=== PATIENT | male | born 1950 | race Caucasian/White ===

== ENCOUNTER 2022-10-27 19:58 | Emergency (ER) | payer OTHER, SELFPAY ==
[2022-10-27 19:59] VITALS: BP 141/93; PULSE 74; RESP 16; TEMP 36.2
[2022-10-27 20:03] VITALS: BP 141/93; PULSE 74; RESP 16; TEMP 36.2
[2022-10-27 20:29] VITALS: BMI 22.9
--- NOTE | 2022-10-27 20:34 | RAD_ITS ---
EXAM: XR LUMBOSACRAL SPINE, 4 OR 5 VIEWS CLINICAL INDICATION: pain TECHNIQUE: Frontal, lateral and bilateral oblique views of the lumbar spine. This report was created using [employer] report generation technology. COMPARISON: None. FINDINGS: VERTEBRAE: Diffuse osteopenia. No spondylolisthesis. Preservation of the normal lumbar lordosis. No significant facet arthropathy. No acute or healing fracture or malalignment. No unusual lytic or sclerotic lesions of bone. DISC SPACES: Moderate degenerative disc disease at L4-5. SOFT TISSUES: Soft tissues are unremarkable. GASTROINTESTINAL TRACT: Unremarkable as visualized. Included bowel gas pattern is non-obstructive. RAD/L/S Spine Min 4 Views IMPRESSION: 1. No acute or healing fracture or malalignment. 2. Moderate degenerative disc disease at L4-5. Electronically Signed: Alban Vidal MD at 21:30 EDT ,
--- NOTE | 2022-10-27 20:47 | EDS_ITS ---
HPI <THANG Rose - Last Filed: 10/27/22 22:16> History of Present Illness Chief Complaint: Back Narrative Narrative: Patient is presenting with left lower back pain that radiates down his left leg he has had intermittently since June. He states he has never had this evaluated. He does report some numbness down his left leg at times but denies any now. Yesterday, he was rolling around on the floor doing different exercises and stretches and thinks that he might of aggravated something because he was in a lot of pain in that area last night as well as today. He tried to ride his bike today but paddling caused him too much pain. He states he has not tried to take anything for pain to this point. He denies any injury to his back, saddle paresthesia, fever, bowel/bladder incontinence. PFSH <THANG Rose - Last Filed: 10/27/22 22:16> PFSH Home Medications cyclobenzaprine 10 mg tablet 10 mg PO TID PRN Muscle Spasm #12 TABLETS 10/27/22 [Rx Last Taken Unknown] hydrocodone-acetaminophen 5-325mg 5mg-325mg 1 tab PO Q4H PRN PRN Pain 5 days #10 TABLETS 10/27/22 [Rx Last Taken Unknown] methylprednisolone 4 mg tablets in a dose pack 4 mg PO UD ##1 10/27/22 [Rx Last Taken Unknown] Allergy/AdvReac Type Severity Reaction Status Date / Time lactose [lactose intolerant] AdvReac Upset Verified 10/27/22 20:03 Stomach Social History Smoking Status: Never smoker ROS <THANG Rose - Last Filed: 10/27/22 22:16> ROS ED Constitutional Constitutional ED: Denies chills or fever(s) Cardiovascular Cardiovascular: Denies chest pain or palpitations Respiratory/Chest Respiratory/Chest: Denies cough or dyspnea Gastrointestinal Gastrointestinal: Denies abdominal pain, nausea or vomiting Musculoskeletal Musculoskeletal: Reports arthralgias, back pain and myalgias; Denies neck pain Integumentary Denies abscess, Abrasions or rash Neurologic Neurologic: Denies weakness Psychiatric Psychiatric: Denies anxiety, depression, suicidal ideation or suicidal thoughts EXAM <THANG Rose - Last Filed: 10/27/22 22:16> Physical Exam Const Vital Signs: 10/27/22 19:59 10/27/22 20:03 Temperature 97.2 F L 97.2 F L Temperature Source Temporal Temporal Pulse Rate 74 74 Respiratory Rate 16 16 Blood Pressure 141/93 H 141/93 H Blood Pressure Mean 109 109 Positive well nourished, well developed and no apparent distress General Appearance ED: well developed HEENT Reports normocephalic and head/scalp atraumatic Mouth ED: Yes moist mucous membranes normal Eyes PERRL and EOMs intact bilaterally Neck full ROM and supple Chest Wall inspection of chest normal Resp normal respiratory effort and clear to auscultation bilaterally Cardio regular rate and regular rhythm GI soft to palpation, non-tender, non-distended and no masses Back/Spine normal ROM and normal to inspection Back/Spine Narrative: Patient does not have any midline tenderness to his cervical, thoracic, lumbar, or sacral spine. He does have some paraspinal tenderness to the left side of his lumbar spine. DP pulses 2+ and equal bilaterally, good capillary refill, sensation intact. Lumbar Spine / Lower Back: straight leg raise negative bilaterally Extremity normal to inspection and full ROM Neuro oriented x3, CN's II-XII intact bilaterally, moves all extremities, no focal motor deficits and no sensory deficits noted Sensorium / Orientation: awake and alert Psych mental status grossly normal and thought process normal Skin no rashes or lesions noted and no wounds <Dr. Cheko Paulson DO - Last Filed: 10/27/22 21:43> Physical Exam Const Vital Signs: 10/27/22 19:59 10/27/22 20:03 Temperature 97.2 F L 97.2 F L Temperature Source Temporal Temporal Pulse Rate 74 74 Respiratory Rate 16 16 Blood Pressure 141/93 H 141/93 H Blood Pressure Mean 109 109 [facility] <Margarita Thomas PA - Last Filed: 10/27/22 22:16> [facility] Narrative Medical decision making narrative: Presenting with left lower back pain that he has had intermittently since June. He has not been evaluated for this and has had no imaging. Patient does have radiation of pain and intermittent numbness down the left leg. Symptoms are consistent with sciatica. There is no injury to patient's back. X-ray obtained of the lumbar and sacral spine and shows moderate degenerative disc disease L4-L5. He has been given a follow-up with Dr. Do. He has been given pain control, Medrol Dosepak, and Flexeril. He has been given return instructions. He will be discharged in stable condition and is comfortable with plan. I have personally performed a face to face assessment of the patient and have reviewed the SIMBA Note. I performed a substantive portion of the visit including all aspects of the following. My villasenor findings include: History is [patient presents with intermittent pain in his back since June 2022. He denies injury or trauma. Patient states the last 2 days the pains been more bearable. He describes pain in his low left back that radiates down his left leg. He denies any weakness. He denies loss of bowel or bladder function. He try to go bicycle riding today but was having too much discomfort. Patient denies any fevers. He denies urinary symptoms.] Exam is [HEENT-PERRLA, EOMI. Cranial nerves II through XII grossly intact. TMs clear. Mucous membranes moist. No adenopathy. Cardiovascular-regular rate and rhythm without murmur or ectopy Lungs-clear to auscultation, chest wall stable without crepitus or subcu emphysema Abdomen-normoactive bowel sounds, soft, nontender, no rebound or rigidity, no peritoneal signs. Back exam-patient has no tenderness over the thoracic or lumbar spine. I cannot reproduce his pain with palpation. He has negative straight leg raises. Deep tendon reflexes are plus 2 out of 4 bilaterally at the patella Achilles. Patient has normal L5 extension bilaterally. Normal sensation to light touch. Extremities-intact ?4, normal range of motion, normal pulses, atraumatic] Medical Decison Making [patient had x-rays of the lumbar spine that showed degenerative changes. No fractures or lytic lesions. Patient will be discharged to home with a prescription for Flexeril as well as [place]o and a Medrol Dosepak. He will be referred to back surgeon for follow-up. He understands that should he continue to have worsening pain or weakness in the extremities or change in bowel or bladder function he is to return to the emergency department. Understands he may need further imaging to evaluate such as possibly MRI if symptoms do not improve. I suspect patient likely has sciatica.] Other additions or changes: [None] Radiography Diagnostic Testing: Clinical Impression(s) from Imaging Studies Lumbar Spine X-Ray 10/27/22 20:34 IMPRESSION: 1. No acute or healing fracture or malalignment. 2. Moderate degenerative disc disease at L4-5. Electronically Signed: Alban Vidal MD at 21:30 EDT , <Dr. Cheko Paulson, DO - Last Filed: 10/27/22 21:43> [facility] MDM Narrative Medical decision making narrative: I have personally performed a face to face assessment of the patient and have reviewed the SIMBA Note. I performed a substantive portion of the visit including all aspects of the following. My villasenor findings include: History is [patient presents with intermittent pain in his back since June 2022. He denies injury or trauma. Patient states the last 2 days the pains been more bearable. He describes pain in his low left back that radiates down his left leg. He denies any weakness. He denies loss of bowel or bladder function. He try to go bicycle riding today but was having too much discomfort. Patient denies any fevers. He denies urinary symptoms.] Exam is [HEENT-PERRLA, EOMI. Cranial nerves II through XII grossly intact. TMs clear. Mucous membranes moist. No adenopathy. Cardiovascular-regular rate and rhythm without murmur or ectopy Lungs-clear to auscultation, chest wall stable without crepitus or subcu emphysema Abdomen-normoactive bowel sounds, soft, nontender, no rebound or rigidity, no peritoneal signs. Back exam-patient has no tenderness over the thoracic or lumbar spine. I cannot reproduce his pain with palpation. He has negative straight leg raises. Deep tendon reflexes are plus 2 out of 4 bilaterally at the patella Achilles. Patient has normal L5 extension bilaterally. Normal sensation to light touch. Extremities-intact ?4, normal range of motion, normal pulses, atraumatic] Medical Decison Making [patient had x-rays of the lumbar spine that showed degenerative changes. No fractures or lytic lesions. Patient will be discharged to home with a prescription for Flexeril as well as Campo and a Medrol Dosepak. He will be referred to back surgeon for follow-up. He understands that should he continue to have worsening pain or weakness in the extremities or change in bowel or bladder function he is to return to the emergency department. Understands he may need further imaging to evaluate such as possibly MRI if symptoms do not improve. I suspect patient likely has sciatica.] Other additions or changes: [None] Radiography Diagnostic Testing: Clinical Impression(s) from Imaging Studies Lumbar Spine X-Ray 10/27/22 20:34 IMPRESSION: 1. No acute or healing fracture or malalignment. 2. Moderate degenerative disc disease at L4-5. Electronically Signed: Alban Vidal MD at 21:30 EDT , Discharge Plan Triage Chief Complaint: Back ED Midlevel Provider: Margarita Thomas ED Provider: Cheko Paulson Dx/Rx/DC Orders Clinical Impression: Left sided sciatica Instructions: ED Sciatica Prescriptions: New cyclobenzaprine 10 mg tablet 10 mg PO TID PRN (Reason: Muscle Spasm) Qty: 12 0RF hydrocodone-acetaminophen 5-325 mg tablet 1 tab PO Q4H PRN PRN (Reason: Pain) 5 Days Qty: 10 0RF methylprednisolone [methylprednisolone] 4 mg tablets,dose pack 4 mg PO UD Qty: 1 0RF Primary Care Provider: Care Physician,No Primary Referrals: Tarun Do DO [Med Staff - Active Staff] - 3-5 Days Care Physician,No Primary [Primary Care Provider] - Activity Restrictions/Additional Instructions: Follow-up with the orthopedic doctor I referred you to and return for any worsening of symptoms. Disposition Disposition: Home, Self Care Discharge Date/Time: 10/27/22 21:51
== END 2022-10-27 21:51 | disposition home or self-care (01) ==
PROVIDERS: Emergency Provider Emergency Medicine; Visit Provider Emergency Medicine
DX: M54.42 Lumbago with sciatica, left side (principal); M51.36 Other intervertebral disc degeneration, lumbar region
CPT/HCPCS: 72110; 99282

== ENCOUNTER 2022-11-05 12:39 | Emergency (ER) | payer OTHER, SELFPAY ==
[2022-11-05 12:40] VITALS: BP 129/96; PULSE 84; RESP 18; TEMP 36.1; O2SAT 97; BMI 21.7
--- NOTE | 2022-11-05 12:59 | EDS_ITS ---
HPI History of Present Illness Chief Complaint: Complaint Detail of Chief Complaint: Urinary incontinence Informant: patient Pain Onset: Days Timing: Intermittent Current Severity: Mild Maximum Severity: Mild Appearance Genital Edema: No Narrative Narrative: 71-year-old male history of anemia pancreatitis. He is never had any back surgeries. Seen last several weeks for sciatica on the left. He said that is improving. He denies any leg weakness or numbness. States he had urinary incontinence the last several days. He is able to urinate. Denies any gross hematuria or cloudy urine. Denies any fever. Denies any significant back pain. Prior similar symptoms: No Recent Illness/Hospitalization: No [facility] Medical History (Updated 11/05/22 @ 14:[address] Reed Rey MD) Sciatic leg pain Home Medications cyclobenzaprine 10 mg tablet 10 mg PO TID PRN Muscle Spasm #12 TABLETS 10/27/22 [Rx Last Taken Unknown] hydrocodone-acetaminophen 5-325mg 5mg-325mg 1 tab PO Q4H PRN PRN Pain 5 days #10 TABLETS 10/27/22 [Rx Last Taken Unknown] methylprednisolone 4 mg tablets in a dose pack 4 mg PO UD ##1 10/27/22 [Rx Last Taken Unknown] Allergy/AdvReac Type Severity Reaction Status Date / Time lactose [lactose intolerant] AdvReac Upset Verified 11/05/22 12:42 Stomach Social History Smoking Status: Never smoker ROS ROS ED ROS Narrative Urinary incontinence. Review of Systems ROS Unobtainable: Denies due to encephalopathy Constitutional Constitutional ED: Denies chills or fever(s) Eyes Eyes: Denies blurry vision ENT ENT ED: Denies ear pain Cardiovascular Cardiovascular: Denies chest pain Respiratory/Chest Respiratory/Chest: Denies cough or dyspnea Gastrointestinal Gastrointestinal: Denies abdominal pain, constipation, diarrhea, melena, nausea or vomiting Genitourinary Genitourinary ED: Denies dysuria or hematuria Musculoskeletal Musculoskeletal: Denies arthralgias or back pain Integumentary Denies abscess or rash Neurologic Neurologic: Denies headache(s) Psychiatric Psychiatric: Denies anxiety or depression Endocrine Endocrinology: Denies polydipsia Hematologic/Lymphatic Hematologic/Lymphatic: Denies easy bleeding Allergic/Immunologic Allergic/Immunologic ED: Denies mouth swelling or tongue swelling EXAM Physical Exam Narrative Exam Narrative: 71-year-old male no acute distress. Vital signs stable afebrile. He does not look septic toxic. He is awake and alert. He is very hard of hearing but he has a hearing aid in and can make out what I am asking him. No one else is present in the room. H EENT exam unremarkable. Neck nontender. Lungs clear. Heart regular rhythm rate about 80 no murmur. Chest wall nontender. Abdomen soft nontender. No peritoneal signs. I do not feel any obvious distended bladder. He has no suprapubic tenderness. Moving all 4 extremities. Neurovascular intact. Good motor strength. No cauda equina. No saddle anesthesia. Normal dorsi plantarflexion. Can lift either leg. Negative straight leg raise. Back he has no spine or SI tenderness. Neurologically is awake and alert with normal motor strength and sensation. Again no signs of cauda equina. Const Vital Signs: 11/05/22 12:40 Temperature 97 F L Temperature Source Temporal Pulse Rate 84 Respiratory Rate 18 Blood Pressure 129/96 H Blood Pressure Mean 107 Pulse Ox 97 Oxygen Delivery Method Room Air Positive well nourished and well developed; Negative for obese, cachectic, contractures or unkempt General Appearance ED: well developed and NAD; Negative for unkempt, cachectic, contractures or pallor Nutritional Appearance: Negative for cachectic or obese HEENT Reports moist mucous membranes; Denies dry mucous membranes normocephalic and atraumatic; Negative for trauma or tenderness Mouth ED: No dry mucous membranes Mouth: No dry mucous membranes Eyes PERRL and EOMs intact bilaterally General Eye ED: Negative for pale conjunctiva or scleral icterus Neck no lymphadenopathy, supple and no JVD General: Negative for tenderness Resp normal respiratory effort and clear to auscultation bilaterally Effort and Inspection: Negative for retractions Auscultation: Negative for rales, rhonchi or wheezes Cardio regular rate, regular rhythm, S1 normal heart sound, S2 normal heart sound and no murmurs Rate: Negative for bradycardia or tachycardic Rhythm: Negative for abnormal rhythm Heart Sounds: Negative for other GI non-tender, non-distended and no masses Inspection: Negative for abdominal distention Auscultation: normoactive bowel sounds Palpation: soft; Negative for tender or guarding no CVA tenderness Bladder / Kidney Exam: No CVA tenderness Groin / Perineum Exam: Negative for edema or lesions Back/Spine no CVA tenderness Back/Spine Narrative: Back nontender. SI nontender. General Back: Negative for CVA tenderness Cervical Spine: Negative for cervical spine tenderness Thoracic Spine / Upper Back: Negative for thoracic spinal tenderness Lumbar Spine / Lower Back: Negative for lumbar spinal tenderness Extremity normal to inspection Extremity Narrative: Normal motor strength and sensation in both upper and lower extremities. General Extremety ED: Negative for edema General Extremity: Negative for edema Neuro oriented x3, moves all extremities, no focal motor deficits and no sensory deficits noted Neuro Narrative: Very hard of hearing. Has hearing aid in. Sensorium / Orientation: alert, oriented to person, oriented to place and oriented to time; Negative for orientation impaired, confused, lethargic or stuporous Motor Exam: strength 5/5 throughout and no movement abnormalities noted Psych mental status grossly normal Appearance: Negative for unkempt Attitude: No agitated Mood & Affect: Negative for depressed Thought Process: normal thought process Thought Content: normal thought content Attention / Concentration: Negative for other Skin General Skin Exam: Negative for jaundice or pallor Lesions: no lesions Rashes: no rashes Trauma: Negative for abrasion or laceration MDM MDM MDM Narrative Medical decision making narrative: 71-year-old with urinary incontinence. He was seen for sciatica. He said that back pain is resolved. He is really not complaining of any back pain. He has normal motor strength and sensation in both lower extremities with no signs of cauda equina. We will get a bladder scan and urinalysis. I will check his kidney function. I do not think this is from an acute disc compressing his spinal cord. I do not think he will need an MRI or imaging of his lumbar spine. He had plain films done recently which were unremarkable. Showed chronic changes. Repeat exam patient is doing well at 2:50 PM. Labs and urinalysis are unremarkable No signs of cauda equina. Patient be discharged home with outpatient follow-up. If this does not improve he may need an MRI but he definitely does not need 1 emergently today. He can stand up and ambulate without any difficulty. History & Record Review Discussion w/independent historian: Patient Lab Data Attestation: I reviewed the patient's lab results. Lab results narrative: CBC normal. White count of 5.8. H&H of 14 and 44. Platelets 254. Chemistries unremarkable BUN of 27 creatinine 0.9 consistent with mild dehydration. Glucose 91. Bladder scan was around 140. No signs of urinary retention. Urinalysis is negative. No signs of infection. No nitrates. No white or red cells. No bacteria. Labs: Laboratory Results - last 24 hr 11/05/22 11/05/22 11/05/22 13:30 13:30 13:45 WBC 5.8 RBC 4.66 Hgb 14.7 Hct 44.8 MCV 96.1 H MCH 31.5 MCHC 32.8 RDW Std Deviation 41.8 RDW Coeff of Jackelyn 12.0 Plt Count 254 MPV 9.0 Immature Gran % (Auto) 0.300 Neut % (Auto) 66.7 Lymph % (Auto) 22.9 [place] % (Auto) 8.7 Eos % (Auto) 0.5 Baso % (Auto) 0.9 Absolute Neuts (auto) 3.9 Absolute Lymphs (auto) 1.34 Nucleated RBC % 0 Sodium 138 Potassium 4.1 Chloride 107 Carbon Dioxide 32.0 Anion Gap -1 L BUN 27 H Creatinine 0.96 Estim Creat Clear Calc 72.45 Est GFR (MDRD) Af Amer 99 Est GFR (MDRD) Non-Af 82 BUN/Creatinine Ratio 28.0 H Glucose 91 Calcium 9.0 Urine Color Yellow Urine Clarity Clear Urine pH 5.0 Ur Specific [place] 1.025 Urine Protein 15 H Urine Glucose (UA) Normal Urine Ketones 5 H Urine Occult Blood Negative Urine Nitrite Negative Urine Bilirubin Negative Urine Urobilinogen Normal Ur Leukocyte Esterase 25 H Urine RBC 0 SEEN Urine WBC 0-5 SEEN Ur Squamous Epith Cells 0 SEEN Urine Bacteria 0 SEEN Urine Mucus 0 SEEN Discharge Plan Triage Chief Complaint: Complaint Other Complaint: Back ED Provider: Reed Rey Dx/Rx/DC Orders Clinical Impression: Bladder incontinence Instructions: Types of Incontinence Prescriptions: No Action cyclobenzaprine 10 mg tablet 10 mg PO TID PRN (Reason: Muscle Spasm) Qty: 12 0RF hydrocodone-acetaminophen 5-325 mg tablet 1 tab PO Q4H PRN PRN (Reason: Pain) 5 Days Qty: 10 0RF methylprednisolone [methylprednisolone] 4 mg tablets,dose pack 4 mg PO UD Qty: 1 0RF Primary Care Provider: Care Physician,No Primary Referrals: Miguel Murphy MD [Med Staff - Before And After School Daycare Worker] - As soon as possible Care Physician,No Primary [Primary Care Provider] - Activity Restrictions/Additional Instructions: Follow-up with a local primary care physician. I referred you to Dr. Miguel Hernandez. Call their office for an appointment. Your labs and urinalysis today were normal. If this continues you may need an MRI of your back. Sometimes you can have a disc pinching a nerve in your back causing you to be incontinent. Disposition Disposition: Home, Self Care
[2022-11-05 13:40] LABS: Absolute Lymphocyte Count 1.34 X10^3/uL (0.83-4.51); Absolute Neutrophil Count 3.9 X10^3/uL (2.0-7.7); Basophil# 0.05 X10^3/uL; Basophil% 0.9 % (0-1); Eosinophil# 0.03 X10^3/uL; Eosinophils% 0.5 % (0-5); Hematocrit 44.8 % (40-54); Hemoglobin 14.7 g/dL (13.0-16.5); Lymphocyte # 1.34 X10^3/ul (0.83-4.51); Lymphocyte % 22.9 % (19-41); Mean Corp Hgb Conc 32.8 g/dL (32-36); Mean Corpuscular Hgb 31.5 pg (27.0-32.0); Mean Corpuscular Volume 96.1 fL (80-94); Monocyte# 0.51 X10^3/uL; Monocyte% 8.7 % (0-10); NRBC Flagged by Analyzer 0 % (0-5); Neutrophil # 3.89 X10^3/uL (2.7-7.7); Neutrophil % 66.7 % (47-70); Platelet Count 254 K/mm3 (150-450); RBC Distribution Width SD 41.8 fl (35.1-43.9); Red Blood Count 4.66 M/mm3 (4.6-6.2); White Blood Count 5.8 K/mm3 (4.4-11.0)
[2022-11-05 13:51] LABS: Bacteria 0 SEEN /hpf (None Seen); Mucous, Urine 0 SEEN /hpf (<or=2+); Red Blood Cells-Urine 0 SEEN /hpf (0-5); Squamous Epithelial Cells - UA 0 SEEN /hpf (0-5)
[2022-11-05 13:55] LABS: Anion Gap -1 (5-15); BUN 27 mg/dL (7-18); Chloride 107 mmol/L (98-107); Creatinine, Serum 0.96 mg/dL (0.70-1.30); EST Glomerular Filtration Rate 82 mL/min (>60); Est Glom Filt Rate - Afr Amer 99 mL/min (>60); Estimated Creatinine Clearance 72.45 ml/min; Glucose 91 mg/dL (74-106); Potassium 4.1 mmol/L (3.5-5.1); Sodium Level 138 mmol/L (136-145)
[2022-11-05 14:15] LABS: Color, Urine Yellow (Yellow); Glucose, Dipstick Normal (Normal); Ketone-Dipstick 5 mg/dl (Negative); Leukocyte Esterase-Dipstick 25 /ul (Negative); Nitrite-Dipstick Negative (Negative); Occult Blood-Urine Negative /ul (Negative); Protein-Dipstick 15 mg/dl (Negative); Specific Gravity, Urine 1.025 (1.002-1.030); Urine Bilirubin Dipstick Negative (Negative); Urine Clarity Clear (Clear); Urine Urobilinogen Normal (Normal)
[2022-11-05 14:36] LABS: White Blood Cells 0-5 SEEN /hpf (0-5)
== END 2022-11-05 15:19 | disposition home or self-care (01) ==
PROVIDERS: Emergency Provider Emergency Medicine; Visit Provider Emergency Medicine
DX: R32 Unspecified urinary incontinence (principal)
CPT/HCPCS: 80048; 81001; 85025; 99282; A4216

== ENCOUNTER → 2022-12-04 | Outpatient (CLI) | payer OTHER, SELFPAY ==
--- NOTE | 2022-12-04 10:15 | MRI_ITS ---
STUDY: MRI LUMBAR SPINE WITHOUT CONTRAST REASON FOR EXAM: Male, 71 years old. pain -- LBP, LEFT hip and leg pain TECHNIQUE: Standardized fat and water weighted pulse sequences were obtained in the sagittal and axial planes. COMPARISON: Lumbar spine x-rays October 27, 2022 FINDINGS: T12-L1: Normal endplates. Normal disc height, hydration and morphology. Normal bilateral facet joints. Normal central canal and bilateral lateral recesses. Normal bilateral intervertebral neural foramina. Normal lumbar lordosis. There is no substantial scoliosis. Normal conus medullaris that terminates at T12-L1 L1-2: Normal endplates. Normal disc height, hydration and morphology. Normal bilateral facet joints. Normal central canal and bilateral lateral recesses. Normal bilateral intervertebral neural foramina. L2-3: Normal endplates. Normal disc height desiccation mild annular bulge.. Mild facet arthropathy.. Mild narrowing the central canal. Normal bilateral lateral recesses. Moderate bilateral neural foraminal encroachment.. L3-4: Normal endplates. Normal disc height, desiccation and mild annular bulge.. Facet arthropathy and mild thickening of ligamenta flava. Mild narrowing of the central canal. Normal bilateral lateral recesses. Moderate bilateral neural foraminal stenosis exaggerated by shortened pedicles L4-5: Narrowed disc space with mild bulging of the disc and prominent left foraminal disc extrusion with superior migration of disc fragment. Facet arthropathy and thickening of ligamenta flava. Mild to moderate narrowing of the central canal and bilateral lateral recesses. Moderate right neural foraminal stenosis and severe narrowing on the left exaggerated by shortened pedicles L5-S1: Normal endplates. Normal disc height, hydration and tiny central disc protrusion.. Bilateral facet arthropathy. Normal central canal and bilateral lateral recesses. Normal bilateral intervertebral neural foramina. Normal visualized sacral ala. Normal visualized paraspinous soft tissue structures. Findings similar to that seen on prior exam given inherent differences in imaging modalities. MRI/Spine Lumbar (Routine) IMPRESSION: No evidence for acute fracture or other significant bone pathology. 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
== END | disposition home or self-care (01) ==
PROVIDERS: Referring Provider Orthopaedic Surgery; Visit Provider Orthopaedic Surgery
DX: M54.50 Low back pain, unspecified (principal); M25.552 Pain in left hip; M79.605 Pain in left leg
CPT/HCPCS: 72148

== ENCOUNTER 2023-01-08 10:03 | Observation (INO) | payer OTHER, MEDICARE, SELFPAY ==
--- NOTE | 2022-12-27 08:30 | EKG12_ITS ---
Test Reason : PRE-OP Blood Pressure : / mmHG Vent. Rate : 048 BPM Atrial Rate : 048 BPM P-R Int : 210 ms QRS Dur : 072 ms QT Int : 462 ms P-R-T Axes : 046 075 065 degrees QTc Int : 412 ms Sinus bradycardia with sinus arrhythmia with 1st degree A-V block Otherwise normal ECG Confirmed by MERRILL GARCIA, YOSVANY ([id number]), video effects editor DOUG WALTER ([id number]) on 12/31/2022 8:41:49 AM Referred By: Tarun Do Confirmed By:YOSVANY MOMIN MD
[2022-12-27 09:56] LABS: Absolute Lymphocyte Count 1.72 X10^3/uL (0.83-4.51); Absolute Neutrophil Count 3.6 X10^3/uL (2.0-7.7); Basophil# 0.06 X10^3/uL; Eosinophil# 0.16 X10^3/uL; Eosinophils% 2.6 % (0-5); Hemoglobin 13.9 g/dL (13.0-16.5); Lymphocyte # 1.72 X10^3/ul (0.83-4.51); Lymphocyte % 28.3 % (19-41); Mean Corp Hgb Conc 32.3 g/dL (32-36); Mean Corpuscular Hgb 31.8 pg (27.0-32.0); Mean Corpuscular Volume 98.4 fL (80-94); Mean Platelet Vol. 8.7 fl (6.2-12.0); Monocyte# 0.49 X10^3/uL; Monocyte% 8.1 % (0-10); NRBC Flagged by Analyzer 0 % (0-5); Neutrophil # 3.63 X10^3/uL (2.7-7.7); Neutrophil % 59.7 % (47-70); Platelet Count 234 K/mm3 (150-450); RBC Distribution Width CV 13.1 % (11.6-14.6); RBC Distribution Width SD 46.8 fl (35.1-43.9); Red Blood Count 4.37 M/mm3 (4.6-6.2); White Blood Count 6.1 K/mm3 (4.4-11.0)
[2022-12-27 10:26] LABS: Anion Gap 5 (5-15); BUN 21 mg/dL (7-18); BUN/Creat Ratio 23.8 RATIO (10-20); Calcium,Total 8.9 mg/dL (8.5-10.1); Chloride 108 mmol/L (98-107); Creatinine, Serum 0.88 mg/dL (0.70-1.30); EST Glomerular Filtration Rate 90 mL/min (>60); Est Glom Filt Rate - Afr Amer 109 mL/min (>60); Glucose 87 mg/dL (74-106); Magnesium 2.5 mg/dL (1.6-2.6); Potassium 4.5 mmol/L (3.5-5.1); Sodium Level 143 mmol/L (136-145)
[2022-12-27 11:08] LABS: HIV - WCH Non-Reactive (Nonreactive); Hepatitis B Surface Antibody Non-Reactive; Hepatitis C Antibody Non-Reactive (Nonreactive)
[2022-12-28 07:08] LABS: Hepatitis A AB, Total Negative (Negative)
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
[2023-01-08] VITALS (12 sets, daily range): BP systolic 117–138; BP diastolic 60–89; PULSE 59–80; RESP 14–18; TEMP 36.1–37.2; O2SAT 95–100; BMI 23.3
[2023-01-08] MEDS: Magnesium 1 GM over 15 mins IV (06:04)
[2023-01-08] MEDS: Acetaminophen 500 MG Tablet 1000 MG PO ×2 (06:09→20:49)
[2023-01-08] MEDS: Insulin Lispro 100 UNIT/ML INSULN.PEN SC (06:21)
[2023-01-08] MEDS: Lactated Ringers 1,000 ML 15 ML IV ×2 (06:24→09:09)
[2023-01-08 06:57] LABS: Bedside Glucose 181 mg/dL (74-106)
--- NOTE | 2023-01-08 07:30 | DISC_PTH ---
PATIENT: LESLY ACEVEDO LOC: [facility]3 U#:[id number] AGE/SX: 72/M [place]: [facility] [place] [place]08/[address]: Dr. Tarun Do DO : 1950 BED: 1 DIS: 01/09/2023 SPEC #: [id number] RECD: 01/08/23 10:03 STATUS: HALINA MAREIL #: [id number] CORTNEY: 01/08/23 07:[address]: Tarun Do DEPT: SURGICAL PATHOLOGY RECD BY: Leanna Cotton ENTERED: 01/08/23 11:47 SP TYPE: DISC OTHR DR: No Primary Care Phys Tissues: Intervertebral disc, NOS Procedures: Surgery Specimen Level III HEADER OPERATION: LIZY, far lateral laminectomy L4-5 PRE-OP DIAGNOSIS: Herniated nucleus pulposus lumbar TISSUE SUBMITTED: Lumbar disc MICROSCOPIC DIAGNOSIS Lumbar disc: Fragments of fibrocartilaginous tissue with degenerative changes. SJ:madiha 01/09/2023 MICROSCOPIC DESCRIPTION Slides are reviewed. GROSS DESCRIPTION Received in fixative is one container labeled with the patient's name and designated lumbar disc. The specimen consists of multiple irregular fragments of garcia-pink, indurated tissue that in aggregate measure 2.5 x 1.5 x 0.3 cm. The specimen is totally submitted in one cassette. / BARRY:madiha 01/08/2023 TC:5 CPT: 61284
[2023-01-08] MEDS: Cefazolin 2 GM in 0.9% Normal Saline 100 ML IV (08:06)
[2023-01-08] MEDS: THROMBIN (RECOMBINANT) 20,000 UNIT VIAL 20000 UNIT TOPICAL (08:32)
--- NOTE | 2023-01-08 08:40 | RAD_ITS ---
STUDY: X-RAY - LUMBAR SPINE REASON FOR EXAM: Male, 72 years old. ERAS, FAR LATERAL LAMINECTOMY L4-5, LEFT TECHNIQUE: One lateral view(s) of the lumbar spine were obtained. COMPARISON: None FINDINGS: The localization instrument is seen posterior to the L4-L5 disc space level. RAD/Spine 1 View Any Level IMPRESSION: The localization instrument is seen posterior to the L4-L5 disc space level. Electronically Signed: Sebastian Taylor MD at 9:23 EDT ,
[2023-01-08 09:41] LABS: Bedside Glucose 85 mg/dL (74-106)
--- NOTE | 2023-01-08 10:07 | OP.PCM_ITS ---
Report of Operation Description of Surgical Findings:: Preoperative diagnosis: Far lateral herniation L4-5 on the left Postoperative diagnosis: The same Procedure: Lateral laminectomy discectomy L4-5 on the left CPT code 92609 Surgeon: Dr. Do Business Account Manager: Janice DESIR Anesthesia: General endotracheal administered by [facility] EBL: Less than 20 cc Drains: None Complications: None Procedure: Patient was taken to the OR where he was placed under general endotracheal anesthesia. A Arana catheter was inserted. Neuro monitoring placed her leads on the patient. The patient was then moved onto the Ulises frame in the prone position with care to protect his bony prominences his genitalia the brachial plexus bilaterally ulnar nerves of both elbows and the facial features and cervical spine. The back was prepped and draped in standard fashion. I then made a small incision centered over L4-5. Subcutaneous tissues were incised the length of the skin incision. I then opened the lumbar fascia to the left of the spinous processes and elevated the paravertebral muscles off the lamina of L4. An intraoperative x-ray was taken with a marker in place to confirm that we were indeed at the L4-5 level. I then exposed the entire pars and the entire lamina all the way out to the facet. I then began my laminectomy at the base of the pars. We did not send it down. Then removed the very bottom of the pars but only for about perhaps 5 mm. I then removed a bit of the top of the lamina of L4 and the very top of the L4-5 facet both the inferior facet of 4 and superior facet of 5. In this fashion we were able to identify the ligamentum flavum. I removed the ligamentum flavum with 45 degree Kerrison rongeurs. This exposed the swollen nerve root and the disc pieces that were pressing on the nerve root in the axilla of the nerve. Using pituitary rongeurs and simply probing it with a nerve hook and pen field we were able to remove several large pieces of disc. I then tested it with a hockey stick going in a proximal direction and in a distal direction and found no more evidence of disc herniation. This completely freed up the L4 nerve. Note that every 10 to 15 minutes in the course of the case we thoroughly irrigated with copious amounts of sterile saline to prevent infection. Once we had excellent hemostasis using Gelfoam and bipolar cautery I then placed a small amniotic membrane directly on the nerve root to prevent any adhesions from forming. Gelfoam was placed over the top of that. No drain was needed as we had very little blood loss. We closed the lumbar fascia using [id number] suture with #1 Vicryl. This was followed by closure of the subcutaneous tissues with 2-0 Vicryl in interrupted fashion and the skin was approximated using skin clips. Sterile dressings were applied. Patient was then recovered in the OR he was moved to his hospital bed and taken to recovery in satisfactory condition. This the end of operative summary on Castillo [facility]. This is Dr. Do dictating.
--- NOTE | 2023-01-08 11:18 | SUR.PHASEII ---
PATIENT READY TO TRANSFER TO THE FLOOR AT THIS TIME, NO BEDS AVAILABLE, WILL MONITOR PHASE 2 IN PACU BAY 2.
[2023-01-08] MEDS: Lactated Ringers 1,000 ML 100 ML IV (16:44)
[2023-01-08] MEDS: Cefazolin 1 GM/50 ML BAG IV (16:45)
[2023-01-08] MEDS: Ensure Surgery 237 ML LIQUID PO (16:50)
[2023-01-09] MEDS: Cefazolin 1 GM/50 ML BAG IV (00:18)
[2023-01-09 00:25] VITALS: BP 132/75; PULSE 61; RESP 16; TEMP 36.8; O2SAT 96
[2023-01-09 04:56] VITALS: BP 134/79; PULSE 64; RESP 16; TEMP 36.9; O2SAT 99
[2023-01-09] MEDS: Acetaminophen 500 MG Tablet 1000 MG PO (05:13)
[2023-01-09 07:55] VITALS: O2SAT 95
[2023-01-09 08:10] VITALS: BP 127/82; PULSE 64; RESP 16; TEMP 36.7; O2SAT 98
[2023-01-09] MEDS: Ensure Surgery 237 ML LIQUID PO (08:22)
[2023-01-09 09:29] VITALS: O2SAT 97
--- NOTE | 2023-01-09 11:18 | CPS ---
patient refuses both incentive and pep
--- NOTE | 2023-01-09 13:15 | CASEMGMT ---
RN?CM?RN MOBILE?CM?to room to meet with patient for initial transition planning/care coordination?assessment.?RN?CM?introduced self and role at [facility] [place].? Pt voices understanding and consents to?assessment?at this time.? Pt in room in no distress at this time and has been ambulating in room ad juan w/out difficulty.? Pt is A/O at this time and answers all questions appropriately.?? Care providers, pharmacy, and demographics verified/updated at this time. PCP: No PCP. Provided w/local Physician's Directory and encouraged to get established w/PCP. Specialists: Dr Do Preferred Pharmacy: [facility] Insurance: [employer], MCR Prescription Benefit:?Yes Living Will/HPOA:? Pt does not know if he has done AD paperwork. LNOK: Brother, Eric. Zoya JOHNSON Living Arrangements: Lives alone in 2-story home w/1-2 steps to enter. FFSU. Indep w/ADL's and IADL's. Pt works at the [employer]. Transportation:?Pt states drives self and states no transportation concerns at this time.?Brother will take him home @ d/c. DME: ? Denies using any DME and denies needs.? HHC/SNF: No hx of either. No needs identified. Pt wishes to return home and states has no concerns with going home at time of discharge.? CM?to follow for any discharge planning/needs.? Pt voices no concerns/needs at this time.? Advised pt to ask for?CM?if any questions/concerns/needs arise.? Voices understanding. LOYA form explained re: Observation status for treatment of lateral laminectomy.? Explained hospitalization will be paid per?his insurance policy for Outpatient billing?and condition will continue to be evaluated for Inpt necessity. Also let pt know that [facility] sends paper in the billing packet with their phone number if questions arise. Pt verbalizes understanding and does not have further questions. ?Form signed, copy made and placed in chart, and original given to pt. PLAN:??Home Deon BSN?RN?CM
--- NOTE | 2023-01-09 13:18 | DCINST_ITS ---
Discharge Instructions Activity May shower in (days): 5 Weight Bearing Status: Full weight bearing Lifting Restrictions: 15# Dressing / Incision Remove Dressing in: 4 days Follow Up Care Test Results: Test results from this visit will be discussed in further detail at your follow- up appointment, if applicable. Discharge Plan Admission Admit Date/Time: 01/08/23 10:03 Primary Reason for Your Visit: back mayte Attending Provider: Tarun Do Primary Care Provider: Care Physician,No Primary Consulting Providers: Renu Huang ; Sebastian Almeida ; Kya Stark ; Kya Roe ; Medina Westbrook ; Estella Duran ; Pardeep Osei ; Nicolas Gibson ; Everett Castañeda ; Rogelio Hylton ; Enmanuel Bautista ; John Aragon ; Xander Brown ; Emeli Tejeda ; Bernabe Vazquez ; Keri Gann ; Tito Woods ; Ray Hewitt ; Kosta Nelson ; Shalini Dorsey ; Jeffrey Joy ; Francheska Anguiano NP ; Miguel Hernandez Discharge Orders/Prescriptions Prescriptions: No Action NK Referrals / Follow Up: Care Physician,No Primary [Primary Care Provider] - Disposition Disposition (needs filled in before D/C Order can be placed): Home, Self Care
--- NOTE | 2023-01-09 13:20 | PCM.DC.SUM ---
Providers Date of Admission: 01/08/23 Primary Care Physician: Naye Primary Care Phys Attending Physician: This patient was admitted yesterday 08 January. He underwent lumbar laminectomy discectomy at L4-5 on the left side. Today he reports complete relief of his leg pain. He is ambulating the daigle his incision is dry and healing well. Instructions were given to his nurse and in the discharge orders. He does not need any pain medicine as he does not have hardly any pain at all. He was told to make an appointment to see me in about 2 weeks. He knows that he can take the dressing off in 4 days and he can shower in 5 days. I will see him again at follow-up. Consultations 01/08/23 11:21 Consult: Hospitalist Routine Consulting Provider: [facility] Reason for Consult: Medical Management EMERGENT Consult: No MD Notified: Yes Date Notified: 01/08/23 Time Notified: 16:07 Method of Notification: Text Reason For Visit: lateral laminectomy l4-5 left Medications at Discharge Home Medications NK 12/25/22 Weight / BMI Weight Weight: 167 lb Body Mass Index (BMI) 23.3 ABG / Lab / Microbiology Data Result Diagrams: 12/27/22 08:43 12/27/22 08:43 Microbiology: Microbiology 12/27/22 08:43 Swab (Method) Nasal Screen MRSA/MSSA - Final D/C Instructions May shower in (days): 5 Weight Bearing Status: Full weight bearing Meaningful Use Info Meaningful Use Diagnoses (Choose all that apply): None applicable Discharge Plan Admission Admit Date/Time: 01/08/23 10:03 Primary Reason for Your Visit: alan hu Attending Provider: Tarun Do Primary Care Provider: Care Physician,Naye Primary Consulting Providers: Renu Huang ; Sebastian Almeida ; Mi,Kya ; Kya Roe ; Medina Westbrook ; Estella Duran ; Pardeep Osei ; Nicolas Gibson ; Everett Castañeda ; Rogeloi Hylton ; Enmanuel Bautista ; John Aragon ; Xander Brown ; Emeli Tejeda ; Bernabe Vazquez ; Keri Gann ; Tito Woods ; Ray Hewitt ; Kosta Nelson ; Shalini Dorsey ; Jeffrey Joy ; Francheska Anguiano NP ; Miguel Hernandez Discharge Orders/Prescriptions Prescriptions: No Action NK Referrals / Follow Up: Care Physician,No Primary [Primary Care Provider] - Disposition Disposition (needs filled in before D/C Order can be placed): Home, Self Care
[2023-01-09 13:22] VITALS: BP 149/86; PULSE 69; RESP 16; TEMP 36.9; O2SAT 97
== END 2023-01-09 14:00 | disposition home or self-care (01) ==
LOC: SDC 15:53 → MS3 15:53
PROVIDERS: Admitting Provider Orthopaedic Surgery; Referring Provider Orthopaedic Surgery; Visit Provider Orthopaedic Surgery
PROC: (CPT 63030; principal; 2023-01-08 07:00)
DX: M51.26 Other intervertebral disc displacement, lumbar region (principal); H91.90 Unspecified hearing loss, unspecified ear; R32 Unspecified urinary incontinence; R30.0 Dysuria; M54.30 Sciatica, unspecified side; I44.0 Atrioventricular block, first degree
CPT/HCPCS: 63030; 00630; 36415; 72020; 80048; 82962; 83735; 85025; 86703; 86706; 86708; 86803; 87081; 88304; 93005; 96361; 96365; 96366; 97161; 97530; 99221; J7120; G0378; J2405; J3475